=== PATIENT | male | born 1995 | race Caucasian/White ===

== ENCOUNTER → 2017-07-27 | Outpatient (CLI) | payer BC, OTHER ==
--- NOTE | 2017-07-27 13:56 | DIAGNOSTIC IMAGING REPORT ---
TESTICULAR ULTRASOUND CLINICAL HISTORY: R TESTICULAR PAIN COMPARISON STUDY: 09/15/2016 FINDINGS: The right testis measures 49 x 35 x 25 mm. The left testis measures 52 x 34 x 24 mm. No intratesticular masses are visualized. There is no evidence of testicular torsion. No epididymal lesions are visualized. IMPRESSION: Normal study. No evidence of testicular torsion. No evidence of intratesticular mass. Electronically signed by: Hector Graff M.D. 07/27/2017 1:55 PM Dictated Date/Time: 07/27/2017 1:54 PM
== END | disposition home or self-care (01) ==
LOC: C.ULTRBC 13:11
PROVIDERS: ATTEND Family Medicine
DX: N50.811 Right testicular pain (principal)